=== PATIENT | male | born 1955 | race Caucasian/White ===

== ENCOUNTER 2017-01-24 07:15 | Observation (INO) ==
[2017-01-24] MEDS ORDERED: Nitroglycerin 0.4 MG TAB.SUBL SL ONE (07:37)
[2017-01-24] MEDS ORDERED: Aspirin 81 MG TAB.CHEW PO ONE (07:37)
--- NOTE | 2017-01-24 07:42 | Emergency Department Note ---
Disposition Clinical Impression: Chest pain Qualifiers: Chest pain type: unspecified Qualified Code(s): R07.9 - Chest pain, unspecified Disposition: Admitted As Inpatient Condition: Fair Time of Disposition: 09:48 Chest Pain HPI - General Chief Complaint: ED Chest Pain Stated Complaint: HTN/"tightness in chest" Time Seen by Provider: 01/24/17 07:25 Source: patient Limitations: no limitations Vital Signs Reviewed: Yes Nursing Notes Reviewed: Yes - History of Present Illness HPI Narrative: 61-year-old male history of CAD, hypertension, anxiety, presents essentially complained of generalized agitation and anxiety, as well as insomnia. But he also states that he has been having nonspecific chest discomfort that he says feels like a pressure. When asked to rate this, he states is a 0 out of 10 as he feels no pain, however he has had chest pressure and chest tightness for the last 2 or 3 days. He previously had a syncopal event and SC in 2014 before that he had one stent placed. He states that he saw his PCP 3 days ago of a newly prescribed sertraline, as well as added HCTZ to his blood pressure regimen , he takes lisinopril metoprolol due to his medicines this morning. He also states his blood pressures have been very high yesterday there were normal but this morning he took it was 200 systolic, he states is causing him other symptoms such as the chest tightness, and also gets some proximal thigh weakness , and tinnitus That seems to be coming going. He denies weight changes, fever chills, nausea, vomiting, hematuria dysuria. Pt complaint: chest pain Onset (ago): day(s) (3) Duration: intermittent Onset: during rest Pain Location: substernal Severity: unable Severity scale (1-10): 0 Pain Radiation: none Improves with: nothing Worsens with: other (Anxiety) - Related Data Allergies Allergy/AdvReac Type Severity Reaction Status Date / Time No Known Allergies Allergy Unverified 09/27/15 00:04 Review of Systems: All systems were reviewed with historian and negative except as per below, or as documented in the HPI. Constitutional: Denies: fever, chills, weight changes Eyes: Denies: vision changes, eye pain ENT: Positive for tinnitus Denies: nasal congestion, sore throat CV: +chest panDenies: chest pain, palpitations Resp: Denies: cough, dyspnea, wheezes, hemoptysis MSK: Denies: back pain, neck pain, extremity pain Skin: Denies: new rashes, new lesions Neuro: Denies: MARRUFO, weakness, sensory changes, gait difficulty Psych: +anxiety Denies:SI HI All systems ED: reviewed and negative except as stated. Chest Pain PMH - Past Medical History Medical history: Reports: CVA, hyperlipidemia, hypertension, myocardial infarction, seizures Psychiatric history: Reports: no psych history - Social History Smoking Status: Never smoker Alcohol use: Reports: none Drug use: Reports: none Physical Exam Constitutional: alert and oriented, in NAD, anxious, vital signs reviewed showed elevated blood pressure HEENT: NCAT, sclera anicteric, PERRLA bilaterally, normal external ears bilaterally, nasal septum nondeviated, average dentition, MMM Neck: normal inspection, neck is supple, trachea midline Resp: normal chest inspection, CTA bilaterally, no resp distress CV: RRR, no m/g/r GI: normal inspection, Soft, NTND, BS present Back: normal inspection, no tenderness to palpation Neuro: A&O3, no gross motor or sensory deficits bilaterally MSK: normal inspection, bilateral UE and LE with normal ROM Psych: moderately anxious Skin: No rashes, skin warm, dry, intact - General Limitations: no limitations General appearance: alert, in no apparent distress Course Course Narrative: 61-year-old male with risk factors including CAD, hypertension, obesity, age, arts score of 4, chest pain workup reassess. - Reevaluation(s) Reevaluation #1: Admitted to Dr Cobian. CP workup negative Time: 09:47 Vital Signs Temperature 97.6 F 01/24/17 07:18 Pulse Rate 76 01/24/17 07:18 Respiratory Rate 16 01/24/17 07:18 Blood Pressure 215/118 01/24/17 07:18 O2 Sat by Pulse Oximetry 98 01/24/17 07:18 Temperature 97.6 F 01/24/17 07:18 Pulse Rate 60 01/24/17 08:37 Respiratory Rate 18 01/24/17 08:37 Blood Pressure 132/90 01/24/17 08:37 O2 Sat by Pulse Oximetry 95 01/24/17 08:37 Oxygen Delivery Oxygen Delivery Room Air Chest Pain - Differential Diagnosis Likely: atypical chest pain, chest pain - Medical Records Medical records reviewed: Yes I reviewed the patient's medical records. - Lab Data Lab results reviewed: Yes I reviewed the patient's lab results. Result diagrams: 01/24/17 07:46 01/24/17 07:46 Lab Results 01/24/17 01/24/17 01/24/17 Range/Units 07:46 07:46 07:46 WBC 7.5 (4.3-11.1) K/mcL RBC 5.30 (4.19-5.50) M/mcL Hgb 15.6 (12.9-16.9) g/dL Hct 47.1 (37.5-50.1) % MCV 88.9 (83.0-100.0) fL MCH 29.4 (28.0-33.3) pg MCHC 33.1 (31.6-35.5) g/dL RDW 13.5 (11.5-14.5) % Plt Count 195 (140-400) K/mcL MPV 9.2 L (9.4-12.4) fL Immature Gran % 0.4 (0-4) % Seg Neutrophils % 58.0 % Lymphocytes % 33.4 % Monocytes % 6.3 % Eosinophils % 1.5 % Basophils % 0.4 % Neutrophils # 4.3 (1.6-8.9) K/mcL Lymphocytes # 2.5 (0.6-4.6) K/mcL Monocytes # 0.5 (0.0-1.3) K/mcL Eosinophils # 0.1 (0.0-0.6) K/mcL Basophils # 0.0 (0.0-0.2) K/mcL PT 10.8 (9.4-12.1) Seconds INR 1.0 APTT 30.2 (26.0-36.0) Seconds Sodium (136-145) mEq/L Potassium (3.5-4.5) mEq/L Chloride (98-109) mEq/L Carbon Dioxide (19-29) mEq/L BUN (8-26) mg/dL Creatinine (0.72-1.25) mg/dL Est GFR ( Amer) (> 60) Est GFR (Non-Af Amer) (> 60) BUN/Creatinine Ratio (6-26) Glucose (70-99) mg/dL Calculated Osmolality (280-300) Calcium (8.6-10.8) mg/dL Troponin I (0-0.03) ng/mL B-Natriuretic Peptide < 10 (0-100) pg/mL 01/24/17 01/24/17 Range/Units 07:46 07:46 WBC (4.3-11.1) K/mcL RBC (4.19-5.50) M/mcL Hgb (12.9-16.9) g/dL Hct (37.5-50.1) % MCV (83.0-100.0) fL MCH (28.0-33.3) pg MCHC (31.6-35.5) g/dL RDW (11.5-14.5) % Plt Count (140-400) K/mcL MPV (9.4-12.4) fL Immature Gran % (0-4) % Seg Neutrophils % % Lymphocytes % % Monocytes % % Eosinophils % % Basophils % % Neutrophils # (1.6-8.9) K/mcL Lymphocytes # (0.6-4.6) K/mcL Monocytes # (0.0-1.3) K/mcL Eosinophils # (0.0-0.6) K/mcL Basophils # (0.0-0.2) K/mcL PT (9.4-12.1) Seconds INR APTT (26.0-36.0) Seconds Sodium 137 (136-145) mEq/L Potassium 4.4 (3.5-4.5) mEq/L Chloride 103 (98-109) mEq/L Carbon Dioxide 23 (19-29) mEq/L BUN 23 (8-26) mg/dL Creatinine 1.48 H (0.72-1.25) mg/dL Est GFR ( Amer) 59 L (> 60) Est GFR (Non-Af Amer) 48 L (> 60) BUN/Creatinine Ratio 16 (6-26) Glucose 122 H (70-99) mg/dL Calculated Osmolality 289 (280-300) Calcium 9.3 (8.6-10.8) mg/dL Troponin I 0.00 (0-0.03) ng/mL B-Natriuretic Peptide (0-100) pg/mL - Radiology Data Radiology results reviewed: Yes I reviewed the patient's radiology results. Chest X-Ray 01/24/17 07:37 IMPRESSION: 1. Low lung volumes. D/ / Kelvin Cho MD / Kelvin Cho MD Interpreting Provider: Kelvin Cho MD - EKG Data EKG attestation: Yes I reviewed and interpreted this EKG. EKG shows normal: sinus rhythm (83 bpm AK to 20 QRS 118 QTC 4:30 7I do not see any ST segment elevations or depressions. Right bundle branch block was present on previous EKG in February 2015) Rhythm: NSR [place]/QRS: RBBB Interpretation: no acute changes - Core Measures AMI Core Measures Followed: Yes Heart Score - Score History: Slightly Suspicious EKG: Non Specific repolarisation Disturbance Age: 45-65 Risk Factors: Equal/Greater than 3 risk factor or history of atherosclerotic disease Troponin: Less than normal limit HEART Score Total: 4
[2017-01-24] MEDS ORDERED: *HR* LORazepam 2 MG/ML VIAL IVP ONE (07:50)
[2017-01-24 07:53] LABS: Basophils % 0.4 %; Eosinophils # 0.1 K/mcL (0.0-0.6); Eosinophils % 1.5 %; Hematocrit 47.1 % (37.5-50.1); Hemoglobin 15.6 g/dL (12.9-16.9); Immature Granulocytes % 0.4 % (0-4); Lymphocytes # 2.5 K/mcL (0.6-4.6); Lymphocytes % 33.4 %; Mean Corpuscular HGB Conc 33.1 g/dL (31.6-35.5); Mean Corpuscular Hemoglobin 29.4 pg (28.0-33.3); Mean Corpuscular Volume 88.9 fL (83.0-100.0); Mean Platelet Volume 9.2 fL (9.4-12.4); Monocytes # 0.5 K/mcL (0.0-1.3); Monocytes % 6.3 %; Neutrophils # 4.3 K/mcL (1.6-8.9); Platelet Count 195 K/mcL (140-400); Red Cell Distribution Width 13.5 % (11.5-14.5)
[2017-01-24 08:00] LABS: Prothrombin Time 10.8 Seconds (9.4-12.1)
[2017-01-24 08:03] LABS: Activated Partial Thrombo Time 30.2 Seconds (26.0-36.0)
[2017-01-24 08:10] LABS: Calcium 9.3 mg/dL (8.6-10.8); Potassium 4.4 mEq/L (3.5-4.5)
--- NOTE | 2017-01-24 09:05 | Emergency Department Note ---
Disposition Clinical Impression: Chest pain Disposition: Admitted As Inpatient Condition: Fair General Adult HPI - General Chief complaint: ED Chest Pain Stated complaint: HTN/"tightness in chest" Time Seen by Provider: 01/24/17 07:25 Source: patient Limitations: no limitations - History of Present Illness Pain Scale: 0 - Related Data Home Medications Medication Instructions Recorded Confirmed Aspirin [Lo-Dose Aspirin EC] 81 mg PO DAILY 01/24/17 01/24/17 Atorvastatin Calcium [Lipitor] 80 mg PO QPM 01/24/17 01/24/17 Clopidogrel [Plavix] 75 mg PO DAILY 01/24/17 01/24/17 Hydrochlorothiazide 25 mg PO DAILY 01/24/17 01/24/17 Lisinopril [Zestril] 40 mg PO DAILY 01/24/17 01/24/17 Metoprolol XL (24 HR) Succ [Toprol 25 mg PO DAILY 01/24/17 01/24/17 XL] Ranitidine HCl [Acid [employer]ud [employer]cker] 150 mg PO DAILY 01/24/17 01/24/17 Sertraline [Zoloft] 50 mg PO DAILY 01/24/17 01/24/17 Allergies Allergy/AdvReac Type Severity Reaction Status Date / Time No Known Allergies Allergy Unverified 09/27/15 00:04 Past Medical History - Past Medical History Medical history: Reports: CVA, hyperlipidemia, hypertension, myocardial infarction, seizures Psychiatric history: Reports: no psych history - Social History Smoking Status: Never smoker Smokeless Tobacco Status: No Alcohol use: Reports: none Drug use: Reports: none Physical Exam - General Limitations: no limitations General appearance: alert, in no apparent distress Course - Reevaluation(s) Reevaluation #1: Saw the patient with the resident, Dr. Isaac. Patient presented with an episode of generalized weakness and feeling flushed and tightness in the chest and a general feeling of panic. He notes having episodes of this frequently over the past 2 weeks. He checked his blood pressure and it was systolic over 200. He took his blood pressure medications and ended up coming to the emergency department. By the time I saw the patient here are then given nitroglycerin and had been in the emergency department for a period of time. His blood pressure was 132/80 when I saw him. He was feeling markedly better. My concern is that he has a significant cardiac history. He had been doing fine but then all of a sudden in the past 2 weeks he is having these episodes that are always associated with skyhigh blood pressure. I am uncomfortable defining this is a panic disorder given his past medical history and his constellation of symptoms. He needs to be admitted to rule out ACS. Time: 09:05 Vital Signs Temperature 97.6 F 01/24/17 07:18 Pulse Rate 76 01/24/17 07:18 Respiratory Rate 16 01/24/17 07:18 Blood Pressure 215/118 01/24/17 07:18 O2 Sat by Pulse Oximetry 98 01/24/17 07:18 Temperature 98.5 F 01/24/17 15:19 Pulse Rate 76 01/24/17 15:19 Respiratory Rate 16 01/24/17 15:19 Blood Pressure 132/81 01/24/17 15:19 O2 Sat by Pulse Oximetry 96 01/24/17 15:19 Oxygen Delivery Oxygen Delivery Room Air Medical Decision Making - Lab Data Result diagrams: 01/24/17 07:46 01/24/17 07:46 Lab Results 01/24/17 01/24/17 01/24/17 Range/Units 07:46 07:46 07:46 WBC 7.5 (4.3-11.1) K/mcL RBC 5.30 (4.19-5.50) M/mcL Hgb 15.6 (12.9-16.9) g/dL Hct 47.1 (37.5-50.1) % MCV 88.9 (83.0-100.0) fL MCH 29.4 (28.0-33.3) pg MCHC 33.1 (31.6-35.5) g/dL RDW 13.5 (11.5-14.5) % Plt Count 195 (140-400) K/mcL MPV 9.2 L (9.4-12.4) fL Immature Gran % 0.4 (0-4) % Seg Neutrophils % 58.0 % Lymphocytes % 33.4 % Monocytes % 6.3 % Eosinophils % 1.5 % Basophils % 0.4 % Neutrophils # 4.3 (1.6-8.9) K/mcL Lymphocytes # 2.5 (0.6-4.6) K/mcL Monocytes # 0.5 (0.0-1.3) K/mcL Eosinophils # 0.1 (0.0-0.6) K/mcL Basophils # 0.0 (0.0-0.2) K/mcL PT 10.8 (9.4-12.1) Seconds INR 1.0 APTT 30.2 (26.0-36.0) Seconds Sodium (136-145) mEq/L Potassium (3.5-4.5) mEq/L Chloride (98-109) mEq/L Carbon Dioxide (19-29) mEq/L BUN (8-26) mg/dL Creatinine (0.72-1.25) mg/dL Est GFR ( Amer) (> 60) Est GFR (Non-Af Amer) (> 60) BUN/Creatinine Ratio (6-26) Glucose (70-99) mg/dL Calculated Osmolality (280-300) Calcium (8.6-10.8) mg/dL Troponin I (0-0.03) ng/mL B-Natriuretic Peptide < 10 (0-100) pg/mL 01/24/17 01/24/17 Range/Units 07:46 07:46 WBC (4.3-11.1) K/mcL RBC (4.19-5.50) M/mcL Hgb (12.9-16.9) g/dL Hct (37.5-50.1) % MCV (83.0-100.0) fL MCH (28.0-33.3) pg MCHC (31.6-35.5) g/dL RDW (11.5-14.5) % Plt Count (140-400) K/mcL MPV (9.4-12.4) fL Immature Gran % (0-4) % Seg Neutrophils % % Lymphocytes % % Monocytes % % Eosinophils % % Basophils % % Neutrophils # (1.6-8.9) K/mcL Lymphocytes # (0.6-4.6) K/mcL Monocytes # (0.0-1.3) K/mcL Eosinophils # (0.0-0.6) K/mcL Basophils # (0.0-0.2) K/mcL PT (9.4-12.1) Seconds INR APTT (26.0-36.0) Seconds Sodium 137 (136-145) mEq/L Potassium 4.4 (3.5-4.5) mEq/L Chloride 103 (98-109) mEq/L Carbon Dioxide 23 (19-29) mEq/L BUN 23 (8-26) mg/dL Creatinine 1.48 H (0.72-1.25) mg/dL Est GFR ( Amer) 59 L (> 60) Est GFR (Non-Af Amer) 48 L (> 60) BUN/Creatinine Ratio 16 (6-26) Glucose 122 H (70-99) mg/dL Calculated Osmolality 289 (280-300) Calcium 9.3 (8.6-10.8) mg/dL Troponin I 0.00 (0-0.03) ng/mL B-Natriuretic Peptide (0-100) pg/mL Attestation Statement - Attestation Attestation: I, Dr. Torres, examined this patient [id number] and my medical decision- making was reviewed with Dr. Isaac, Resident Physician. I agree with the documented findings, disposition and treatment plan as described except to the extent set forth below. Please see my progress notes for details.
[2017-01-24] MEDS ORDERED: Naloxone 0.4 MG/ML INJ IVP PRN (10:35)
[2017-01-24] MEDS ORDERED: Nitroglycerin 0.4 MG TAB.SUBL SL PRN (11:19)
[2017-01-24] MEDS ORDERED: Acetaminophen 325 MG TABLET PO PRN (11:19)
--- NOTE | 2017-01-24 11:24 | Internal Med History&Physical ---
Date of Encounter: 01/24/17 Time of Encounter: 11:22 Assessment and Plan (1) Chest pain Current visit: Yes Status: Acute 1 patient has coronary disease with NC and stent placement 2014. Patient has been experiencing chest tightness related to elevated blood pressure. First set of cardiac troponins were negative we will continue to cycle cardiac troponins 2 we will obtain cardiac echo 3. Patient nothing by mouth after midnight for cardiac stress test in a.m. 4 nitroglycerin as needed for chest pain 5 oxygen to maintain SPO2 greater than 90% 6. cardiac monitoring 7 aspirin beta hayley statin-check lipid profile in a.m. 8 cardiac diet Qualifiers: Chest pain type: unspecified Qualified Code(s): R07.9 - Chest pain, unspecified (2) Hypertensive urgency Current visit: Yes Status: Acute 1 on presentation patient's blood pressures 215 systolic 118 diastolic. He was experiencing some chest tightness Patient is on metoprolol lisinopril hydrochlorothiazide at home he did take his medications this a.m. In the ER he was given nitroglycerin as well as Ativan which did help lower his blood pressure and relieved his chest tightness. Presently his blood pressure stable Patient does have a history of panic attacks I suspect this may be related he was just recently started on Zoloft for anxiety. We will continue with HCTZ increase metoprolol and add Norvasc. We will stop lisinopril dt rising creatinine. Continue Zoloft and will add Ativan as needed Goal is maintain BP less than 140/80 2 low sodium diet 3 will consult nephrology dt increasing creatinine and uncontrolled BP (3) Anxiety Current visit: Yes Status: Acute 1 patient has been experiencing increased anxiety as well as insomnia for several days he was seen by his primary care doctor on Friday was prescribed Zoloft. We will continue with Zoloft we will add Ativan as needed (4) CAD (coronary artery disease) Current visit: Yes Status: Acute 1 patient has history of NC in 2014 with stent placement has been experiencing chest tightness with elevated blood pressure. We will continue with aspirin and Plavix 2 continue with statin beta hayley Ghulam 4 cardiac diet Qualifiers: Coronary Disease-Associated Artery/Lesion type: [place] artery [place] vs. transplanted heart: [place] heart Associated angina: with unspecified angina Qualified Code(s): I25.119 - Atherosclerotic heart disease of [place] coronary artery with unspecified angina pectoris (5) Chronic renal insufficiency, stage III (moderate) Current visit: Yes Status: Acute 1. Since 2014 patient's creatinine has been increasing ranging from 1.27-1.4 as well as GFR has been 55-60, related to his hypertension. Today patient's creatinine is 1.48 and was recently started on hydrochlorothiazide and is on lisinopril for his blood pressure. We will stop lisinopril and add norvasc continue to monitor Creatinine 2 we will avoid nephrotoxins 3 monitor intake and output daily weights 4 will will obtain urine for micro albumin, and check A1c 5 consulted nephrology concerning rising creatinine and uncontrolled BP (6) DVT prophylaxis Current visit: Yes Status: Acute 1 [facility] Internal Medicine - H&P: HPI Chief complaint: elevated BP , CP Admitted From: Emergency Dept Plans for Post Hospital Care: Home History of present illness: Mr. Angeles is a 61 year old male past HISTORY of CAD with stent placement in [place] hypertension anxiety renal insufficiency, chronic tinnitus. According to patient he has been experiencing increased blood pressure anxiety as well as insomnia over the past few days. On Friday he saw his primary care provider who prescribed him hydrochlorothiazide side as well as Zoloft. At approximately 2 AM this morning patient was awake and with his heart beating very heavily some chest tightness midsternal nonradiating he was diaphoretic slightly nauseated he took a shower he said he felt better when back to bed and around 7:30 he got up and felt weak again his heart was pounding he had ringing in his ears his blood pressure was elevated systolic 200. He denies any shortness of breath, palpitations or lightheadedness abdominal pain nausea vomiting fevers or chills He states the ringing in the ears is chronic and he notices that it worsens whenever he has anxiety. He says that he had a history of anxiety attacks in the past he feels that this is similar however since he does have a heart history he went to the ER for evaluation. According to ER records the patient presented complaining of elevated blood pressure chest pressure radiated ears and anxiety. His initial blood pressure was 215/118 the patient states he has taken his oral medications this a.m. he was given nitroglycerin as well as Ativan which patient states the Ativan seemed to relieve his chest pressure. Lab work was obtained did reveal an elevated creatinine 1.48 troponin was 0 EKG sinus rhythm with an incomplete right bundle branch which was present on previous EKG chest x-ray was unremarkable he was admitted for further workup and evaluation. At present time patient denies any chest pressure he does seem a little anxious, questioning whether or not he will receive anything for his anxiety. He is sinus rhythm on a monitor his blood pressure is improved 136/91. I reviewed this case with Dr. Cobian who agrees with plan Past Med Surg Social Fam HX - Past Medical History Medical history: CVA, hyperlipidemia, hypertension, myocardial infarction, seizures Psychiatric history: no psych history - Past Surgical History Surgical History: angioplasty/stent - Social History Smoking Status: Never smoker Smokeless Tobacco Status: No Alcohol use: none Drug use: none - Family History Mother Living Status: Cause of : NC Hx Family Cardiac Disorders: Yes (NC) Hx Family Endocrine Disorder: Yes (DM) Brother Living Status: Still Living Hx Family Cardiac Disorders: Yes (HTN) Internal Medicine - H&P: Meds Aspirin [Lo-Dose Aspirin EC] 81 mg PO DAILY 01/24/17 [History] Atorvastatin Calcium [Lipitor] 80 mg PO QPM 01/24/17 [History] Clopidogrel [Plavix] 75 mg PO DAILY 01/24/17 [History] Hydrochlorothiazide 25 mg PO DAILY 01/24/17 [History] Lisinopril [Zestril] 40 mg PO DAILY 01/24/17 [History] Metoprolol XL (24 HR) Succ [Toprol XL] 25 mg PO DAILY 01/24/17 [History] Ranitidine HCl [Ac[employer] Director] 150 mg PO DAILY 01/24/17 [History] Sertraline [Zoloft] 50 mg PO DAILY 01/24/17 [History] Allergies No Known Allergies Allergy (Unverified 09/27/15 00:04) All Systems PM: A 10-system review of systems was performed and is negative for pertinent findings except as documented above in the HPI. - Constitutional Constitutional: weakness - EENT Eyes: no change in vision, no discharge, no pain, no photophobia Ears: tinnitus - Cardiovascular Cardiovascular ROS IM: chest pain, diaphoresis - Respiratory Respiratory: no cough, no dyspnea, no wheezing, no excessive phlegm production - Gastrointestinal Gastrointestinal: no abdominal pain, no diarrhea, no hematemesis, no hematochezia, no melena, no nausea, no vomiting - Musculoskeletal Musculoskeletal ROS IM: no numbness, no tingling - Integumentary Integumentary IM: no rash, no unusual bruising - Neurological Neurological ROS: no confusion, no convulsions, no focal weakness, no numbness, no tingling, no tremor(s) - Hematologic/Lymphatic Hematologic/Lymphatic: no easy bruising - Constitutional Vitals: Temp Pulse Resp BP Pulse Ox 97.6 F 60 18 136/91 95 01/24/17 07:18 01/24/17 08:37 01/24/17 09:53 01/24/17 09:53 01/24/17 08:37 General appearance: Present: A&O X 3, answers questions appropriately - Head Head exam: Present: atraumatic, normocephalic - Eye Eye exam: Present: PERRL, conjuntiva pink, sclera anicteric Pupils: Present: PERRL - Neck Neck exam general surgery: Present: supple, trachea midline. Absent: lymphadenopathy - Respiratory Respiratory exam: Present: CTAB. Absent: accessory muscle use, rales, rhonchi, wheezes - GI/Abdominal GI/Abdominal exam: Present: normal bowel sounds, soft, no peritoneal signs. Absent: distended, tenderness - Extremities Exam Extremities exam: Present: warm, radial pulses palpable and symetrical. Absent : calf tenderness, cyanotic, pedal edema - Neurological Exam Neurological exam: Present: CN II-XII intact, oriented X3, no focal deficits. Absent: pronater drift, facial droop, speech deficit - Skin Skin exam: Present: dry, intact Internal Med - H&P Results - Labs CBC & Chem 7: 01/24/17 07:46 01/24/17 07:46 - EKG Data EKG shows normal: sinus rhythm - EKG Data Prior EKG available for review: yes When compared to previous EKG: there is no significant change EKG comments: 01/24/17 11:39 RBB - Diagnostic Studies Chest x-ray Additional comments: Chest X-Ray 01/24/17 07:37 IMPRESSION: 1. Low lung volumes. D/ / Kelvin Cho MD / Kelvin Cho MD Interpreting Provider: Kelvin Cho MD
[2017-01-24] MEDS ORDERED: *HR* LORazepam 0.5 MG TABLET PO PRN (13:56)
[2017-01-24 15:42] LABS: Creatinine,Urine 138 mg/dL; Microalbum/Creatinine Ratio,Ur 9 (0-30); Microalbumin,Urine 13 mg/L
--- NOTE | 2017-01-24 17:07 | Nephrology Consult Note ---
Date of Encounter: 01/24/17 Time of Encounter: 17:00 Assessment and Plan (1) Chronic renal insufficiency, stage III (moderate) Current Visit: Yes Status: Acute Elevated SCr in the setting of HTN and advancing age with a minor bump while on lisinopril and HCTZ Will initiate a workup for CKD with SPEP and UPEP Will also check JAC and complements Will also check US of kidneys Will hold lisinopril for now urine for proteinuria neagative, will check UA (2) Hypertensive urgency Current Visit: Yes Status: Acute Will initiate workup for secondary causes: Will check renin, aldosterone levels Will check cortisol and thyroid function tests Will check plasma catecholamines if possible May also need evaluation for ORACIO with imaging History of Present Illness - Reason for Consult Consult date: 01/24/17 Chronic Kidney Disease, accelerated hypertension Requesting physician: Yesi Perez - History of Present Illness 61 y o male with PMH of HTN, CAD s/p [place], stent and CVA presenitng for chest pain with palpitations and elevated blood pressure of 215/118 with sudden ons BP stabilized with amlodipine and ativan by the time of this evaluation Patient reports being started on HCTZ in addition to his lisinopril for added BP control recently. Renal consulted for elevated SCr at 1.48, GFR 48 along with uncontrolled HTN for workup. 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 He denied any family history of renal diease. He also denied any urinary sxs. No NSAIDs use. Past Med Surg Social Fam HX - Past Medical History Medical history: CVA, hyperlipidemia, hypertension, myocardial infarction, seizures Psychiatric history: no psych history - Past Surgical History Surgical History: angioplasty/stent - Social History Smoking Status: Never smoker Smokeless Tobacco Status: No Alcohol use: none Drug use: none - Family History Mother Living Status: Cause of : [place] Hx Family Cardiac Disorders: Yes ([place]) Hx Family Endocrine Disorder: Yes (DM) Brother Living Status: Still Living Hx Family Cardiac Disorders: Yes (HTN) Medications and Allergies Aspirin [Lo-Dose Aspirin EC] 81 mg PO DAILY 01/24/17 [History] Atorvastatin Calcium [Lipitor] 80 mg PO QPM 01/24/17 [History] Clopidogrel [Plavix] 75 mg PO DAILY 01/24/17 [History] Lisinopril [Zestril] 40 mg PO DAILY 01/24/17 [History] Ranitidine HCl [Acid Court Collections Officer] 150 mg PO DAILY 01/24/17 [History] Sertraline [Zoloft] 50 mg PO DAILY 01/24/17 [History] Amlodipine [Norvasc] 10 mg PO DAILY 30 Days 01/25/17 [Rx] Chlorthalidone 25 mg PO DAILY 30 Days 01/25/17 [Rx] Metoprolol XL (24 HR) Succ [Toprol Xl] 50 mg PO DAILY 30 Days 01/25/17 [Rx] Allergies No Known Allergies Allergy (Unverified 09/27/15 00:04) Review of Systems All Systems: reviewed and no additional remarkable complaints except as stated ( ten systems reviewed) Exam - Vital Signs Vital signs: Initial Vital Signs Temp Pulse Resp BP Pulse Ox 97.6 F 76 16 215/118 98 01/24/17 07:18 01/24/17 07:18 01/24/17 07:18 01/24/17 07:18 01/24/17 07:18 Vital Signs - Last 8 Hours Temp Pulse Resp BP Pulse Ox 01/24/17 15:19 98.5 F 76 16 132/81 96 01/24/17 11:56 97.9 F 62 14 123/74 93 L 01/24/17 09:53 18 136/91 Intake and Output 01/24/17 01/24/17 01/24/17 07:59 15:59 23:59 Intake Total 240 / 240 Balance 240 / 240 Intake: Oral 240 / 240 Other: Meal Lunch Percent of Meal Consumed 100% Weight 110.677 kg Patient Weight 01/24/17 23:59 Weight 110.677 kg - General Appearance General appearance: well-developed, well-nourished EENT: ATNC, mucous membranes moist Neck: no JVD, supple Respiratory: clear (ant bilat) Cardiology: no edema, normal S1, normal S2 Gastrointestinal: no tenderness, no guarding Integumentary: no rash Neurologic: no focal deficit Musculoskeletal: no deformities Psychiatric: mood/affect appropriate Results - Lab Results 01/24/17 07:46 01/25/17 04:25 Most recent lab results Calcium 9.3 mg/dL (8.6-10.8) 01/24/17 07:46 Urine Creatinine 138 mg/dL 01/24/17 15:15 Consult Discharge Plan - Plan Instructions: Chest Pain (DC), Chronic Hypertension (DC) Referrals: NO,PCP [Primary Care Provider] - Prescriptions: Amlodipine [Norvasc] 10 mg PO DAILY 30 Days Chlorthalidone 25 mg PO DAILY 30 Days Metoprolol XL (24 HR) Succ [Toprol Xl] 50 mg PO DAILY 30 Days
[2017-01-24] MEDS ORDERED: ATORVASTATIN CALCIUM 80 MG PO SCH (18:00)
[2017-01-24 19:32] LABS: Bilirubin,Urine Negative (Negative); Blood,Urine Negative (Negative); Clarity,Urine Clear (Clear); Color,Urine Yellow (Yellow); Glucose,Urine (UA) Normal (Normal); Ketones,Urine Negative (Negative); Leukocyte Esterase,Urine Negative (Negative); Nitrite,Urine Negative (Negative); Protein,Urine Negative (Neg-Trace); Specific Gravity,Urine 1.008 (1.010-1.025); Urobilinogen,Urine Normal (Normal)
[2017-01-24 21:09] LABS: Thyroid Stimulating Hormone 2.321 mcIU/mL (0.350-4.840); Triiodothyronine (T3) Free 2.47 pg/mL (1.71-3.71)
[2017-01-25 05:25] LABS: Chol/HDL Ratio 5.6 (0-4.9); Magnesium 1.9 mg/dL (1.6-2.6)
[2017-01-25] MEDS ORDERED: *HR* Enoxaparin 40 MG/0.4 ML SYRINGE SQ SCH (07:00)
--- NOTE | 2017-01-25 08:50 | ECHO - Doppler Report ---
Echocardiogram Name: Heron Ramos [facility] Date of Study: 01/24/2017 Date: 1955 Ht: 73.0 in Medical Record#: [id number] Age: 61 Wt: 244.0 lb Gender: Male BSA: 2.34 Order #: [id number] Location: [facility] Room #: 3B34 Reading Physician: Cheng Pelaez DO, HANNAH, JORGE L DUQUE Fnps: Matilda Armas Ordering Physician: Yesi Perez CNP Primary Physician: None Indications: Chest pain Impressions: LVEF 60%. Normal LV chamber size, wall thickness and function. Mild concentric left ventricular hypertrophy. Pseudonormal left ventricular diastolic function. Normal right ventricular structure and function. No evidence of pulmonary hypertension. No significant valvular dysfunction. Left Ventricular Wall Motion: Rest Echo Findings All wall segments showed normal motion. Findings: Study Quality * Technically adequate exam. ECG Findings * Normal sinus rhythm. Left Ventricle * LVEF 60%. * Normal LV chamber size, wall thickness and function. * Mild concentric left ventricular hypertrophy. * Pseudonormal left ventricular diastolic function. Right Ventricle * Normal right ventricular structure and function. Left Atrium * Moderately dilated left atrium. Right Atrium * Mildly dilated right atrium. Interatrial Septum * Interatrial septum not well evaluated. Aortic Valve * Trileaflet aortic valve with normal function. * No aortic regurgitation. * No aortic stenosis. Mitral Valve * Normal mitral valve structure and function. * No mitral regurgitation. * No mitral stenosis. Tricuspid Valve * Normal tricuspid valve structure and function. * Trace tricuspid regurgitation. * No evidence of pulmonary hypertension. Pulmonic Valve * Normal pulmonic valve structure and function. * No pulmonic regurgitation. Aorta * Normally sized aortic root. Pericardium * The pericardium appears normal. IVC * Normal IVC dimensions and inspiratory collapse. Pulmonary Artery * Normal visualized portions of the main pulmonary artery. History Hypertension Hypercholesteremia Rheumatic Fever Family History of CAD History of CAD/PTCA Myocardial Infarction 01/26/2015 a Previous Echo was performed. Measurements: BP: 132/ 81 2D Normal Values RVIDd: 4.10 cm <2.7 cm IVSd: 1.50 cm 0.6 - 1.0 cm LVIDd: 4.60 cm 3.7 - 5.6 cm LVPWd: 1.40 cm 0.6 - 1.1 cm LVIDs: 3.00 cm 1.5 - 3.6 cm AO: 3.00 cm < 4.0 cm LA: 4.60 cm 2.0 - 4.0cm %FS: 34.80 cm >25 % LA volume: 67 Mitral Valve Peak E:.84 m/sec Peak A:.68 m/sec E/A Ratio:1.2 Peak E' Lat Manfred:11.4 cm/s Peak E' Med Manfred:5.46 cm/s Tricuspid Valve TV Regurg Peak Grad: 26.00mmHg TV Regurg Peak Manfred: 2.57m/sec Updated by Cheng Pelaez DO, HANNAH, DUNIA, JORGE L on 01/25/2017 8:45:08 AM electronically signed on 01/25/2017 8:45:33 AM with status of Final Wall Motion Bray: 1=Normal, 2=Hypokinesis, 3=Akinesis, 4=Dyskinesis, 5=Aneurysmal, 6=Hyperkinetic, X=Not Visualized (Blank)=Missing
[2017-01-25] MEDS ORDERED: Famotidine 20 MG TABLET PO SCH (09:00)
[2017-01-25] MEDS ORDERED: amLODIPine 5 MG TABLET PO SCH (09:00)
[2017-01-25] MEDS ORDERED: Aspirin Enteric Coated 81 MG Tablet PO SCH (09:00)
[2017-01-25] MEDS ORDERED: Metoprolol XL (24 HR) Succ 25 MG TAB.ER.24H PO SCH ×3 (09:00)
[2017-01-25] MEDS ORDERED: hydroCHLOROthiazide 25 MG TABLET PO SCH (09:00)
[2017-01-25] MEDS: *HR* HYDROcodone/Acet 5/325 mg TABLET PO PRN ×3 (10:05→15:41)
[2017-01-25 11:39] VITALS: BP 118/74
[2017-01-25 12:15] LABS: Hemoglobin A1C 5.8 %
[2017-01-25 12:37] LABS: BUN/Creatinine Ratio 17 (6-26); Blood Urea Nitrogen 23 mg/dL (8-26); Calcium 8.7 mg/dL (8.6-10.8); Carbon Dioxide 20 mEq/L (19-29); Chloride 106 mEq/L (98-109); Glucose 104 mg/dL (70-99); Osmolality,Calculated 292 (280-300); Sodium 139 mEq/L (136-145); eGFR For African Americans > 60 (> 60); eGFR For Non-African Americans 52 (> 60)
--- NOTE | 2017-01-25 13:37 | Nephrology Progress Note ---
Date of Encounter: 01/25/17 Time of Encounter: 14:00 - Assessment and Plan (1) Chronic renal insufficiency, stage III (moderate) Status: Acute SCr improved to 1.39, GFR 51 which is more consistent with his previous numbers workup so far unremarkable US of kidney showed slightly size asymmetry with his kidneys but not significant , imaging for ORACIO would be good (2) Hypertensive urgency Status: Acute Resolved, continue current BP meds off lisinopril Await the rest of secondary workup started, can be finished outpatient if discharged today Can followup with me within 2-4 weeks (3) Chest pain Status: Acute resolved. stress test negative Qualifiers: Chest pain type: other chest pain Qualified Code(s): R07.89 - Other chest pain; R07.8 - Other chest pain Subjective Interval history: Pt seen and examined with no new complaints. s/p stress test this am which was negative. No chest pain or SOB. Objective - Vital Signs Vital signs: Vital Signs Temp Pulse Resp BP Pulse Ox 01/25/17 11:38 98.4 F 84 16 118/74 95 01/25/17 10:00 95 01/25/17 07:34 98.0 F 65 16 127/84 95 01/25/17 04:15 97.7 F 60 16 131/78 95 01/24/17 23:35 97.8 F 63 14 144/88 96 01/24/17 19:09 98.1 F 62 16 157/88 97 01/24/17 15:19 98.5 F 76 16 132/81 96 Intake and Output 01/24/17 01/25/17 01/25/17 23:59 07:59 15:59 Intake Total 1040 / 1040 Output Total 350 / 350 320 / 320 Balance 690 / 690 -320 / -320 Intake: Oral 1040 / 1040 Output: Urine 350 / 350 320 / 320 Other: Meal Dinner NPO for breakfast Percent of Meal Consumed 100% # Voids 1 Weight 108 kg Patient Weight 01/25/17 23:59 Weight 108 kg - General Appearance General appearance: Present: well-developed, well-nourished EENT: Present: ATNC, mucous membranes moist Neck: Present: no JVD, supple Respiratory: Present: clear Cardiology: Present: no edema, normal S1, normal S2 Gastrointestinal: Present: no tenderness, no guarding Integumentary: Present: warm and dry Neurologic: Present: no focal deficit Musculoskeletal: Present: no deformities Psychiatric: Present: mood/affect appropriate - Lab 01/24/17 07:46 01/25/17 04:25 Most recent lab results Calcium 8.7 mg/dL (8.6-10.8) 01/25/17 04:25 Magnesium 1.9 mg/dL (1.6-2.6) 01/25/17 04:25 Urine Creatinine 138 mg/dL 01/24/17 15:15 Consult Discharge Plan - Plan Instructions: Chest Pain (DC), Chronic Hypertension (DC) Additional Instructions: Amlodipine and Chlorthalidone added. BLOOD PRESSURE WAS WELL CONTROLLED AT DISCHARGE. Low salt, heart friendly diet reinforced. Recheck BMP in 1 week. Renal artery soogram in the out-patient setting. Referrals: Ti Blankenship MD [Partnered Physician] - NO,PCP [Primary Care Provider] - Prescriptions: Amlodipine [Norvasc] 10 mg PO DAILY 30 Days Chlorthalidone 25 mg PO DAILY 30 Days Metoprolol XL (24 HR) Succ [Toprol Xl] 50 mg PO DAILY 30 Days
--- NOTE | 2017-01-25 14:00 | Nuclear Medicine Stress Report ---
Exercise Nuclear Stress Name: Heron Angeles Date of Study: 01/25/2017 Date: 1955 Ht: 73.0 in Medical Record#: [id number] Age: 61 Wt: 244.0 lb Gender: Male Order #: [id number] Location: [facility] IP Room: [facility] Supervising Provider: Erwin Salinas CNP Reading Physician: Cheng Pelaez DO, FACKt, JORGE L DUQUE Ordering Physician: Elda Savage CNP Primary Care Physician: David Bello DO Stress Technologist: Geovanna Conroy, AUTOMATION AND CONTROLS MANAGER, CCT, CPFT [employer] History Teacher: Mark Maldonado Indications: Shortness of breath, INCRESASED B/P Impression: Exercise ECG is negative for ischemia. The exercise capacity was good. No chest pain. The patient demonstrated a hypertensive blood pressure response. Gated EF = 70%. Perfusion imaging was negative for ischemia or infarct. History: Hypertension Hypercholesteremia Prior PCI Stress Test Summary: Stress Test Type: Treadmill Protocol: Sami Baseline Information: Initial Heart Rate: 77 Blood Pressure: 124/80 Stress Information: Stress Time: 9 min 00 sec Test Terminated Due to (primary): Dyspnea Maximum Blood Pressure: 220/84 Maximum Heart Rate: 152 Percent Maximum Heart Rate Achieved: 96 Double Product: 71251 METS Reached: 10.1 Symptoms: Shortness of breath Nuclear Summary: SPECT myocardial perfusion imaging using Tc99m Sestamibi given intravenously was performed at rest and following cardiac stress testing. The resting images were obtained following initial dose of 11.7 mCi. Following stress an additional dose of 33.7 mCi was given at peak exercise or 30 seconds post regadenoson infusion. Medication Given: Time Medication Dose Units Route Findings: Stress Note * Resting ECG demonstrated normal sinus rhythm. * No baseline arrhythmias were noted. * Exercise ECG is negative for ischemia. * No arrhythmias were noted during stress. * The exercise capacity was good. * Patient had no chest pain during stress. * The patient demonstrated a hypertensive blood pressure response. Study Quality * Study quality is good. Gated EF % * Gated EF = 70%. Left Ventricle * The left ventricle is not dilated. LVEDV = 86 mL. NORMALS * Normal wall motion. * Normal segmental perfusion in stress. * Normal segmental perfusion in rest. TID * No evidence of transient ischemic dilatation. TID ratio = 0.64. Lung Uptake * There is no evidence of increase lung uptake. Updated by Cheng Pelaez DO, HANNAH, DUNIA, JORGE L on 01/25/2017 1:55:35 PM electronically signed on 01/25/2017 1:57:06 PM with status of Final
--- NOTE | 2017-01-25 15:14 | Discharge Summary ---
Date of Encounter: 01/25/17 Time of Encounter: 12:30 - Discharge Diagnosis (1) Anxiety Priority: Primary Status: Acute (2) CAD (coronary artery disease) Priority: Secondary Status: Chronic Qualifiers: Coronary Disease-Associated Artery/Lesion type: [place] artery [place] vs. transplanted heart: [place] heart Associated angina: with unspecified angina Qualified Code(s): I25.119 - Atherosclerotic heart disease of [place] coronary artery with unspecified angina pectoris (3) Chest pain Priority: Primary Status: Acute Qualifiers: Chest pain type: other chest pain Qualified Code(s): R07.89 - Other chest pain; R07.8 - Other chest pain (4) Chronic renal insufficiency, stage III (moderate) Priority: Primary Status: Acute (5) Hypertensive urgency Priority: Primary Status: Acute - Discharge Medications Prescriptions: Amlodipine [Norvasc] 10 mg PO DAILY 30 Days Chlorthalidone 25 mg PO DAILY 30 Days Metoprolol XL (24 HR) Succ [Toprol Xl] 50 mg PO DAILY 30 Days Home Medications: Aspirin [Lo-Dose Aspirin EC] 81 mg PO DAILY 01/24/17 [History] Atorvastatin Calcium [Lipitor] 80 mg PO QPM 01/24/17 [History] Clopidogrel [Plavix] 75 mg PO DAILY 01/24/17 [History] Lisinopril [Zestril] 40 mg PO DAILY 01/24/17 [History] Ranitidine HCl [Acid Contract Associate] 150 mg PO DAILY 01/24/17 [History] Sertraline [Zoloft] 50 mg PO DAILY 01/24/17 [History] Amlodipine [Norvasc] 10 mg PO DAILY 30 Days 01/25/17 [Rx] Chlorthalidone 25 mg PO DAILY 30 Days 01/25/17 [Rx] Metoprolol XL (24 HR) Succ [Toprol Xl] 50 mg PO DAILY 30 Days 01/25/17 [Rx] Allergies/Adverse Reactions: Allergies No Known Allergies Allergy (Unverified 09/27/15 00:04) Procedures/tests Complete & Pending: Procedures Performed prior 72 hours Category Date Time Status NM gabbi perf SPECT multi [NM] Routine Exams 01/24/17 11:21 Taken US retroperitoneal comp [US] Routine Exams 01/24/17 21:45 Completed ECG 12 lead ECG [ECG] AM 0600 Y 01/25/17 06:00 Ordered EV echocardiogram Routine Y 01/24/17 11:18 Completed Renal artery ultrasound [EV renal artery image] Routine Y 01/25/17 11:31 Ordered SP exercise nuclear stress Routine Y 01/25/17 08:30 Completed Date of admission: 01/24/17 09:42 Primary care physician: PCP KING Consults: 01/24/17 13:47 Consult to Nephrology [CONS] Routine Consulting Provider: Kidney Caterina/ARLETTE/SALVATORE/TAYLOR Reason for Consult: increasing creatinine, BP control Time Notified: 13:47 Call Completed: Yes Discharging clinician: Harish Arias Anticipated date of discharge: 01/25/17 - Patient Status Disposition: Home, Self-Care Condition: Good Overall status at discharge: patient is back to baseline - Discharge Instructions Instructions: Chest Pain (DC), Chronic Hypertension (DC) Follow Up With: NO,PCP [Primary Care Provider] - Ti Blankenship MD [Partnered Physician] - Additional Instructions: Amlodipine and Chlorthalidone added. BLOOD PRESSURE WAS WELL CONTROLLED AT DISCHARGE. Low salt, heart friendly diet reinforced. Recheck BMP in 1 week. Renal artery soogram in the out-patient setting. - Diet and Activity Activity: resume usual activities as tolerated Diet: low fat, low cholesterol, low salt diet Interval History: No complaints. Blood pressure now well controlled. Hospital course: Mr. Angeles is a 61 year old male with medical history significant for CAD with stent placement in LAD hypertension anxiety renal insufficiency, chronic tinnitus was admitted with hypertensive urgency and increased anxiety over same. He underwent extensive work up for CAD and secondary hypertension because of uncontrolled hypertension and elevated troponin. Renal sonogram report mild assymmetry of kidneys otherwise unremarkable. serial troponins negative. 2D ECHO was not acute, LVEF=60%, mild concentric hypertrophy, no wall motion anomaly. Cardiac stress test was non-ischemic. Renal artery sonogram will be completed in the out-patient setting. Assays for renin-angiotension sent off. These will be interpreted and discussed with the patient in the oyt-patient setting. Lisinopril and HCTZ has been held. Amlodipine and Chlorthalidone added. BLOOD PRESSURE WAS WELL CONTROLLED AT DISCHARGE. Low salt, heart friendly diet reinforced. Recheck BMP in 1 week. Renal artery soogram in the out -patient setting. - Time Spent with Patient Total time spent providing and/or coordinating discharge services: Specific discharge activities: as tolerated. - Constitutional Vitals: Temp Pulse Resp BP Pulse Ox 98.4 F 84 16 118/74 95 01/25/17 11:38 01/25/17 11:38 01/25/17 11:38 01/25/17 11:38 01/25/17 11:38 General appearance: Present: A&O X 3, answers questions appropriately Exam: Not pale, anicteric, afebrile, acyanot Chest clear Heart: RRR, HS1/2 Abdomen: soft, non-tender, no masses. 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 Skin: no active skin lesion Extremities: no pedal edema.
[2017-01-27 07:42] LABS: Complement Component 3 162 mg/dL (88-201); Complement Component 4 37 mg/dL (10-40)
[2017-01-27 09:54] LABS: Alpha 2 Globulin (PEP) 0.79 g/dL (0.48-1.05); Beta Globulin (PEP) 0.87 g/dL (0.48-1.10)
[2017-01-27 12:44] LABS: IFE Reflexed NOT DONE
[2017-01-27 12:45] LABS: ANA IgG by ELISA NONE DETECTED (None Detected)
--- NOTE | 2017-01-27 13:18 | Electrocardiograph Report ---
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
[2017-01-27 13:56] LABS: Urine Collection Duration RANDOM hr; Urine Collection Volume RANDOM mL
--- NOTE | 2017-01-27 15:16 | Electrocardiograph Report ---
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
== END 2017-01-25 15:45 | disposition home or self-care (01) ==
LOC: 3BNU 07:15 → EMEROO 07:15 → 3BNU 10:14
PROVIDERS: ADMIT Nurse Practitioner Acute Care; ATTEND Nurse Practitioner Family